=== PATIENT | male | born 1985 ===

== ENCOUNTER 2018-02-14 16:02 | Emergency (ER) | payer OTHER, MEDICAID ==
[2018-02-14 16:07] VITALS: BP 150/62; PULSE 79; RESP 16; TEMP 97.8; O2SAT 100
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
== END 2018-02-14 18:22 | disposition home or self-care (01) ==
LOC: H.ER 16:02
DX: S09.90XA Unspecified injury of head, initial encounter (principal); S93.402A Sprain of unspecified ligament of left ankle, initial encounter; W19.XXXA Unspecified fall, initial encounter; Y92.410 Unspecified street and highway as the place of occurrence of the external cause